=== PATIENT | female | born 1985 | race Caucasian/White ===

== ENCOUNTER 2018-02-21 23:27 | Emergency (ER) | payer SELFPAY ==
[2018-02-22] MEDS: DEXAMETHASONE 10 MG/ML 1 ML INJ IM (01:08)
== END 2018-02-22 01:15 | disposition home or self-care (01) ==
LOC: FTE 23:27
DX: J02.9 Acute pharyngitis, unspecified (principal); I10 Essential (primary) hypertension
CPT/HCPCS: 96372; 99284-25